=== PATIENT | female | born 1990 | race Caucasian/White ===

== ENCOUNTER → 2019-09-06 | Outpatient (CLI) | payer OTHER ==
--- NOTE | 2019-09-06 14:53 | 2DMMODE ---
[facility] [place] [address] 2 D/M-MODE ECHOCARDIOGRAM Name: ERIN LOPEZ Room #: [facility]#: [id number] Admission: Attend Phys: Chet Gunter MD Discharge: Date of : 89 Report #: [id number] THIS REPORT FOR: //name// APPROVED REPORT Study performed: 09/06/2019 13:37:12 EXAM: Comprehensive 2D, Doppler, and color-flow Echocardiogram Patient Location: Out-Patient Room #: Echo lab 2 Status: routine BSA: 1.67 HR: 88 bpm Rhythm: NSR Other Information Study Quality: Good Indications Family history of heart disease. 2D Dimensions RVDd: 29.21 mm IVSd: 8.06 (7-11mm) LVOT Diam: 22.50 (18-24mm) LVDd: 42.96 mm PWd: 7.55 (7-11mm) Ascending Ao: 26.90 (22-36mm) LVDs: 27.67 (25-40mm) Aortic Root: 26.62 mm IVC: 11.00 mm Volumes Left Atrial Volume (Systole) Single Plane 4CH: 24.40 mL Single Plane 2CH: 34.69 mL LA ESV Index: 19.00 mL/m2 Aortic Valve AoV Peak Derian.: 1.16 m/s AO Peak Gr.: 5.42 mmHg LVOT Max P.19 mmHg LVOT Max V: 1.02 m/s VI Vmax: 3.49 cm2 Mitral Valve E/A Ratio: 1.2 MV Decel. Time: 119.27 ms MV E Max Derian.: 0.76 m/s [facility] [address] [place] [address] 2 D/M-MODE ECHOCARDIOGRAM Name: ERIN LOPEZ Room #: [facility]#: [id number] Admission: Attend Phys: Chet Gunter MD Discharge: Date of : 89 Report #: [id number] MV A Derian.: 0.65 m/s MV PHT: 34.59 ms IVRT: 87.66 ms Pulmonary Valve PV Peak Derian.: 1.10 m/s PV Peak Gr.: 4.84 mmHg Pulmonary Vein P Vein S: 0.44 m/s P Vein A: 0.21 m/s P Vein D: 0.64 m/s P Vein A Dur.: 92.3 msec P Vein S/D Ratio: 0.69 Tricuspid Valve TR Peak Derian.: 2.26 m/s TR Peak Gr.: 20.35 mmHg PA Pressure: 25.00 mmHg Left Ventricle The left ventricle is normal size. There is normal LV segmental wall motion. There is normal left ventricular wall thickness. Left ventricular systolic function is normal. The left ventricular ejection fraction is within the normal range. LVEF is 55-60%. The left ventricular diastolic function is normal. Right Ventricle The right ventricle is normal size. The right ventricular systolic function is normal. Atria The left atrium size is normal. The right atrium size is normal. Aortic Valve The aortic valve is normal in structure. No aortic regurgitation is present. There is no aortic valvular stenosis. Mitral Valve The mitral valve is normal in structure. There is no mitral valve regurgitation noted. No evidence of mitral valve stenosis. Tricuspid Valve The tricuspid valve is normal in structure. There is trace tricuspid regurgitation. Estimated PAP 25 mmHg. Pulmonic Valve The pulmonary valve is normal in structure. There is no pulmonic [facility] [place] [address] 2 D/M-MODE ECHOCARDIOGRAM Name: ERIN LOPEZ Room #: [facility]#: [id number] Admission: Attend Phys: Chet Gunter MD Discharge: Date of : 89 Report #: [id number] valvular regurgitation. Great Vessels The aortic root is normal in size. IVC is normal in size and collapses >50% with inspiration. Pericardium There is no pericardial effusion. <Conclusion> The left ventricle is normal size. There is normal left ventricular wall thickness. Left ventricular systolic function is normal. The left ventricular diastolic function is normal. The right ventricle is normal size. The left atrium size is normal. The aortic valve is normal in structure. There is no mitral valve regurgitation noted. There is trace tricuspid regurgitation. Estimated PAP 25 mmHg. <ELECTRONICALLY SIGNED> By: Chet Gunter MD 09/06/19 [id number] Chet Gunter MD /INF
== END ==
LOC: CV 12:06
DX: E78.1 Pure hyperglyceridemia (principal)